=== PATIENT | female | born 1960 | race Caucasian/White ===

== ENCOUNTER → 2019-04-14 07:30 | Outpatient (BNVA) | payer MEDICARE, MEDICAID, SELFPAY | PROVIDERS: Family Provider Internal Medicine; PCP Internal Medicine; Visit Provider Nurse Practitioner | DX: F51.11 Primary hypersomnia (principal) | CPT/HCPCS: 99213 ==

== ENCOUNTER → 2019-04-19 10:03 | Outpatient (BNVA) | payer MEDICARE, MEDICAID, SELFPAY | PROVIDERS: Family Provider Internal Medicine; PCP Internal Medicine; Visit Provider Nurse Practitioner | DX: G89.29 Other chronic pain (principal); M54.16 Radiculopathy, lumbar region; M47.812 Spondylosis without myelopathy or radiculopathy, cervical region; Z79.891 Long term (current) use of opiate analgesic | CPT/HCPCS: 99213; 99214 ==

== ENCOUNTER → 2019-08-15 08:19 | Outpatient (BNVA) | payer MEDICARE, MEDICAID, SELFPAY | PROVIDERS: Family Provider Internal Medicine; PCP Internal Medicine; Visit Provider Anesthesiology | DX: G89.29 Other chronic pain (principal); M54.9 Dorsalgia, unspecified; M53.9 Dorsopathy, unspecified; M54.16 Radiculopathy, lumbar region; M47.812 Spondylosis without myelopathy or radiculopathy, cervical region; Z79.891 Long term (current) use of opiate analgesic | CPT/HCPCS: 99214 ==

== ENCOUNTER → 2019-09-28 07:54 | Outpatient (BNVA) | payer MEDICARE, MEDICAID, SELFPAY | PROVIDERS: Family Provider Internal Medicine; PCP Internal Medicine; Visit Provider Nurse Practitioner | DX: G47.00 Insomnia, unspecified (principal) | CPT/HCPCS: 99214 ==

== ENCOUNTER → 2019-10-03 09:17 | Outpatient (BNVA) | payer MEDICARE, MEDICAID, SELFPAY | PROVIDERS: Family Provider Internal Medicine; PCP Internal Medicine; Visit Provider Nurse Practitioner | DX: G89.29 Other chronic pain (principal); M47.812 Spondylosis without myelopathy or radiculopathy, cervical region; M54.16 Radiculopathy, lumbar region; M54.9 Dorsalgia, unspecified; Z79.891 Long term (current) use of opiate analgesic | CPT/HCPCS: 99213; 99214 ==

== ENCOUNTER → 2019-12-15 07:50 | Outpatient (BNVA) | payer MEDICARE, MEDICAID, SELFPAY | PROVIDERS: Family Provider Internal Medicine; PCP Internal Medicine; Visit Provider Anesthesiology | DX: G89.29 Other chronic pain (principal); M54.42 Lumbago with sciatica, left side; M54.41 Lumbago with sciatica, right side; M54.16 Radiculopathy, lumbar region; M47.812 Spondylosis without myelopathy or radiculopathy, cervical region; M54.9 Dorsalgia, unspecified; M53.9 Dorsopathy, unspecified; Z79.891 Long term (current) use of opiate analgesic | CPT/HCPCS: 99214 ==

== ENCOUNTER → 2020-02-20 07:53 | Outpatient (BNVA) | payer MEDICARE, MEDICAID, SELFPAY | PROVIDERS: Family Provider Internal Medicine; PCP Internal Medicine; Visit Provider Anesthesiology | DX: G89.29 Other chronic pain (principal); M54.9 Dorsalgia, unspecified; M54.41 Lumbago with sciatica, right side; M54.42 Lumbago with sciatica, left side; M54.16 Radiculopathy, lumbar region; M47.812 Spondylosis without myelopathy or radiculopathy, cervical region; M53.9 Dorsopathy, unspecified; Z79.891 Long term (current) use of opiate analgesic | CPT/HCPCS: 99213; 99214 ==

== ENCOUNTER → 2020-03-18 07:42 | Outpatient (BNVA) | payer MEDICARE, MEDICAID, SELFPAY | PROVIDERS: Family Provider Internal Medicine; PCP Internal Medicine; Visit Provider Nurse Practitioner | DX: G47.00 Insomnia, unspecified (principal) | CPT/HCPCS: 99213 ==

== ENCOUNTER → 2020-04-19 07:51 | Outpatient (BNVA) | payer MEDICARE, MEDICAID, SELFPAY | PROVIDERS: Family Provider Internal Medicine; PCP Internal Medicine; Visit Provider Anesthesiology | DX: G89.29 Other chronic pain (principal); M54.16 Radiculopathy, lumbar region; M54.9 Dorsalgia, unspecified; M47.812 Spondylosis without myelopathy or radiculopathy, cervical region; M53.9 Dorsopathy, unspecified; Z79.891 Long term (current) use of opiate analgesic | CPT/HCPCS: 99214 ==

== ENCOUNTER 2020-04-25 13:59 | Outpatient (CLI) | payer MEDICARE, MEDICAID, SELFPAY ==
--- NOTE | 2020-04-25 14:03 | MM_ITS ---
WS: [id number] BILATERAL DIGITAL SCREENING MAMMOGRAPHY WITH CAD CLINICAL INFORMATION: SCREENING HISTORY: Screening mammogram. No current complaints. COMPARISON: TECHNIQUE: Bilateral CC and MLO views. FINDINGS: The breasts are composed of heterogeneous fibroglandular density tissue, which can limit the detectio n of small underlying mass lesions. Asymmetric density upper outer left breast is new since the prior examinations measuring approximatel y 13 mm best seen on the cc view. This is probably posterior depth on the MLO view. Recommend spot co mpression views and ultrasound if persistent. Right breast is unchanged and unremarkable. MM/[place] [id number] IMPRESSION: BI-RADS: 0-Incomplete: Need additional imaging evaluation FOLLOW UP: Need Additional Imaging RECOMMEND LEFT DIAGNOSTIC MAMMOGRAPHY WITH SPOT COMPRESSION VIEWS OF THE ASYMME TRIC DENSITY AND LEFT BREAST ULTRASOUND IF PERSISTENT.
== END 2020-04-25 14:00 | disposition home or self-care (01) ==
LOC: RADSHAW 14:01
PROVIDERS: PCP Internal Medicine; Visit Provider Internal Medicine
DX: Z12.31 Encounter for screening mammogram for malignant neoplasm of breast (principal); N64.89 Other specified disorders of breast
CPT/HCPCS: 77067

== ENCOUNTER 2020-05-16 07:52 | Outpatient (CLI) | payer MEDICARE, MEDICAID, SELFPAY ==
--- NOTE | 2020-05-16 07:56 | US_ITS ---
WS: [id number] LEFT DIGITAL MAMMOGRAPHY WITH CAD CLINICAL INFORMATION: ABNORMAL MAMMOGRAM LT BREAST HISTORY: COMPARISON: April 25, 2020 TECHNIQUE: 5 views of the left breast were obtained. FINDINGS: Scattered fibroglandular densities of the left breast. Again seen is the asymmetric density upper out er left breast which partially compresses out on the spot compression views. This measures approximat ravi 13 mm unchanged. Ultrasound is pending. ULTRASOUND BREAST LEFT TECHNIQUE: Ultrasound left breast focused area of concern. CLINICAL INFORMATION: ABNORMAL MAMMOGRAM LT BREAST COMPARISON: None. FINDINGS: Ultrasound left breast at the 3:00 position. Small hypoechoic ovoid well-circumscribed lesion visuali zed posterior depth adjacent to the chest wall. This likely corresponds to the mammographic abnormali ty and measures approximately 5.6 x 7.2 x 2.0 mm. This is nonspecific but probably benign. Recommend 6 month follow-up left diagnostic mammography and ultrasound. US/US breast LT limited* [id number] IMPRESSION: BI-RADS: 3-Probably Benign FOLLOW UP: 6 Month Follow-up RECOMMEND 6 MONTH FOLLOW-UP LEFT DIAGNOSTIC MAMMOGRAPHY AND ULTRASOUND.
== END 2020-05-16 07:53 | disposition home or self-care (01) ==
LOC: RADSHAW 07:53
PROVIDERS: PCP Internal Medicine; Visit Provider Nurse Practitioner Family
DX: R92.8 Other abnormal and inconclusive findings on diagnostic imaging of breast (principal)
CPT/HCPCS: 76642; 77065

== ENCOUNTER → 2020-06-19 08:09 | Outpatient (BNVA) | payer MEDICARE, MEDICAID, SELFPAY | PROVIDERS: PCP Internal Medicine; Visit Provider Anesthesiology | DX: G89.29 Other chronic pain (principal); M54.9 Dorsalgia, unspecified; M54.16 Radiculopathy, lumbar region; M47.812 Spondylosis without myelopathy or radiculopathy, cervical region; M53.9 Dorsopathy, unspecified; Z79.891 Long term (current) use of opiate analgesic | CPT/HCPCS: 99214 ==

== ENCOUNTER 2020-07-04 07:56 | Outpatient (CLI) | payer MEDICARE, MEDICAID, SELFPAY ==
--- NOTE | 2020-07-04 08:00 | MR_ITS ---
WS: [id number] MRI LUMBAR SPINE NONCONTRAST TECHNIQUE: Sagittal T1, T2 and STIR imaging. Axial T1 and T2 imaging. CLINICAL INFORMATION: M54.16 - Radiculopathy, lumbar region COMPARISON: MRI March 2013 FINDINGS: Mild lumbar curve. No acute compression. Slight anterolisthesis L5 on S1 progressed from 2013. L1-L2: Normal. L2-L3: Mild annular bulging. Mild facet arthropathy. Spinal canal and foramen are patent. L3-L4: Slight retrolisthesis. Mild annular bulging. Slight narrowing of the left subarticular recess. Mild left and no significant right foraminal narrowing. Mild facet arthropathy. L4-L5: Mild annular bulging with slight effacement of ventral thecal sac. Slight narrowing of the sub articular recess. Mild left greater than right foraminal narrowing. Mild facet arthropathy. L5-S1: Grade 1 anterolisthesis L5 on S1. Disc bulging with mild to moderate central canal stenosis. I mpingement on the traversing right greater than left S1 nerve roots. Mild right and no significant le ft foraminal narrowing. Moderate facet arthropathy. Visualized pelvic bony structures: Normal. Paravertebral soft tissues: Normal. MR/MR lumbar spine wo con* [id number] IMPRESSION: 1. Mild lumbar curve. No acute compression. Slight anterolisthesis L5 on S1 me asuring 5 mm increased since 2013 2. Mild to moderate central canal stenosis L5-S1 with impingement on the trave rsing right greater than left S1 nerve roots. Recommend correlation for S1 nerv e root symptoms. Mild right L5-S1 foraminal narrowing. 3. Mild annular bulging L3-L4 and L4-L5 with slight narrowing of subarticular recess. 4. Mild foraminal narrowing more prominent left L3-4, bilateral L4-5, and righ t L5-S1. 5. Moderate facet arthropathy L5-S1.
== END 2020-07-04 07:57 | disposition home or self-care (01) ==
PROVIDERS: PCP Internal Medicine; Visit Provider Anesthesiology
DX: M54.16 Radiculopathy, lumbar region (principal); M47.817 Spondylosis without myelopathy or radiculopathy, lumbosacral region; M51.26 Other intervertebral disc displacement, lumbar region; M48.07 Spinal stenosis, lumbosacral region; M54.9 Dorsalgia, unspecified; G89.29 Other chronic pain
CPT/HCPCS: 36415; 72148; 80048

== ENCOUNTER 2020-07-04 09:19 | Outpatient (CLI) | payer MEDICARE, MEDICAID, SELFPAY ==
[2020-07-04 10:32] LABS: Anion Gap 13.2 (5-19); Blood Urea Nitrogen 19 mg/dL (6-20); Calcium 9.1 mg/dL (8.5-10.5); Carbon Dioxide 28 mmol/L (22-29); Chloride 103 mmol/L (98-107); Glomerular Filtration Rate 126.7 mL/min (90-130); Glucose 87 mg/dL (65-115); Osmolality Calculated 292 mOsm/kg (285-295); Potassium 4.2 mmol/L (3.5-5.1); Sodium 140 mmol/L (136-145)
== END 2020-07-04 09:20 | disposition home or self-care (01) ==
LOC: LAB 09:24
PROVIDERS: PCP Internal Medicine; Visit Provider Anesthesiology
DX: M54.9 Dorsalgia, unspecified (principal); G89.29 Other chronic pain
CPT/HCPCS: 36415; 80048

== ENCOUNTER → 2020-08-20 08:34 | Outpatient (BNVA) | payer MEDICARE, MEDICAID, SELFPAY | PROVIDERS: PCP Internal Medicine; Visit Provider Anesthesiology | DX: G89.29 Other chronic pain (principal); M54.9 Dorsalgia, unspecified; M54.16 Radiculopathy, lumbar region; M47.817 Spondylosis without myelopathy or radiculopathy, lumbosacral region; M47.812 Spondylosis without myelopathy or radiculopathy, cervical region; M53.9 Dorsopathy, unspecified; Z79.891 Long term (current) use of opiate analgesic; Z87.891 Personal history of nicotine dependence | CPT/HCPCS: 99214 ==

== ENCOUNTER → 2020-10-23 07:50 | Outpatient (BNVA) | payer MEDICARE, MEDICAID, SELFPAY | PROVIDERS: PCP Internal Medicine; Visit Provider Anesthesiology | DX: G89.29 Other chronic pain (principal); M54.16 Radiculopathy, lumbar region; M47.817 Spondylosis without myelopathy or radiculopathy, lumbosacral region; M47.812 Spondylosis without myelopathy or radiculopathy, cervical region; M53.9 Dorsopathy, unspecified; R51.9 Headache, unspecified; Z79.891 Long term (current) use of opiate analgesic; Z87.891 Personal history of nicotine dependence | CPT/HCPCS: 99214 ==

== ENCOUNTER 2020-12-11 07:52 | Outpatient (CLI) | payer MEDICARE, MEDICAID, SELFPAY ==
--- NOTE | 2020-12-11 08:04 | MM_ITS ---
WS: [id number] LEFT DIGITAL MAMMOGRAPHY WITH CAD CLINICAL INFORMATION: ABNORMAL MAMMOGRAM LT BREAST HISTORY: Six-month follow-up COMPARISON: May 16, 2020 TECHNIQUE: 7 views of the left breast were obtained. FINDINGS: Scattered fibroglandular densities of the left breast. Parenchymal tissue is unchanged in appearance left breast. No new findings. Ultrasound is pending. ULTRASOUND BREAST LEFT TECHNIQUE: Ultrasound left breast focused area of concern. CLINICAL INFORMATION: ABNORMAL MAMMOGRAM LT BREAST COMPARISON: May 16, 2020 FINDINGS: 6 month follow-up. Ultrasound left breast at 3:00 position 4 cm from the nipple. Normal underlying pa renchymal breast tissue. No cystic or solid lesions. No suspicious findings today. Previously describ ed small hypoechoic lesion not seen today. This was likely a small cyst that resolved. Recommend retu rn to annual screening mammography. MM/[place] [id number] IMPRESSION: BI-RADS: 2-Benign FOLLOW UP: 1 Year Follow-up Recommend return to annual screening mammography.
== END 2020-12-11 07:53 | disposition home or self-care (01) ==
LOC: RADSHAW 07:58
PROVIDERS: PCP Internal Medicine; Visit Provider Nurse Practitioner Family
DX: R92.8 Other abnormal and inconclusive findings on diagnostic imaging of breast (principal)
CPT/HCPCS: 76642; 77065

== ENCOUNTER → 2020-12-20 08:59 | Outpatient (BNVA) | payer MEDICARE, MEDICAID, SELFPAY | PROVIDERS: PCP Internal Medicine; Visit Provider Anesthesiology | DX: G89.29 Other chronic pain (principal); M47.812 Spondylosis without myelopathy or radiculopathy, cervical region; M54.16 Radiculopathy, lumbar region; M47.817 Spondylosis without myelopathy or radiculopathy, lumbosacral region; R51.9 Headache, unspecified; Z79.891 Long term (current) use of opiate analgesic | CPT/HCPCS: 99214 ==

== ENCOUNTER → 2021-03-21 08:12 | Outpatient (BNVA) | payer MEDICARE, MEDICAID, SELFPAY | PROVIDERS: PCP Internal Medicine; Visit Provider Anesthesiology | DX: G89.29 Other chronic pain (principal); M54.16 Radiculopathy, lumbar region; M47.817 Spondylosis without myelopathy or radiculopathy, lumbosacral region; M47.812 Spondylosis without myelopathy or radiculopathy, cervical region; M53.9 Dorsopathy, unspecified; G44.52 New daily persistent headache (NDPH); Z79.891 Long term (current) use of opiate analgesic; Z87.891 Personal history of nicotine dependence | CPT/HCPCS: 99214 ==

== ENCOUNTER 2022-01-29 13:57 | Outpatient (CLI) | payer MEDICARE, MEDICAID, SELFPAY ==
--- NOTE | 2022-01-29 14:15 | XR_ITS ---
WS: [id number] Exam: XR lumbar spine min 4V [id number] Date/Time of Exam: 01/29/2022 2:30 PM Reason For Exam: Lumbar Pain Comparison 04/10/2013. No fracture or dislocation. Grade 1 degenerative spondylolisthesis of L5 on S1 with about 8 mm forwar d movement of L5. Mild degenerative thinning of the L5-S1 disc. Degenerative facet change at L4-5 and L5-S1. Remaining discs are preserved. Osteopenia. XR/XR lumbar spine min 4V [id number] IMPRESSION: 1. No acute fracture or dislocation. 2. Degenerative spondylolisthesis of L5 on S1 with about 8 mm forward movement of L5. 3. Degenerative changes and osteopenia.
--- NOTE | 2022-01-29 14:15 | XR_ITS ---
WS: [id number] Exam: XR pelvis 1-2V* [id number] Date/Time of Exam: 01/29/2022 2:30 PM Reason For Exam: Pelvis Pain No fracture or dislocation. Mild DJD of the sacroiliac joints. The hips are intact. Soft tissues are unremarkable. XR/XR pelvis 1-2V* [id number] IMPRESSION: 1. No pelvic fracture noted. 2. Bilateral SI joint DJD.
== END 2022-01-29 13:58 | disposition home or self-care (01) ==
LOC: RAD 14:01
PROVIDERS: PCP Internal Medicine; Visit Provider General Practice
DX: R10.2 Pelvic and perineal pain (principal); M19.09 Primary osteoarthritis, other specified site; M54.50 Low back pain, unspecified; M43.17 Spondylolisthesis, lumbosacral region; M85.88 Other specified disorders of bone density and structure, other site
CPT/HCPCS: 72110; 72170

== ENCOUNTER 2023-08-03 08:01 | Outpatient (CLI) | payer MEDICARE, MEDICAID, SELFPAY ==
--- NOTE | 2023-08-03 08:11 | US_ITS ---
WS: [id number] ULTRASOUND SOFT TISSUES RIGHT back. HISTORY: SKIN LESION/MASS IN R LOWER BACK COMPARISON: None available. TECHNIQUE: 2-D and color Doppler imaging is submitted. Palpable area along the RIGHT lower back corresponds to a hyperechoic nodule without increased vascul arity. Nodule measures 1.1 x 0.5 cm and is very benign in appearance. Most consistent with a lipoma. US/US soft tissue/extremity [id number] IMPRESSION: Subcutaneous lipoma posterior RIGHT back corresponds to the palpable abnormalit y.
--- NOTE | 2023-08-03 08:11 | MM_ITS ---
WS: [id number] BILATERAL SCREENING DIGITAL TOMOSYNTHESIS MAMMOGRAM WITH CAD HISTORY: SCREENING COMPARISON: 12/11/2020, 04/25/2020, 10/10/2018 Bilateral CC and MLO views with tomosynthesis and synthetic mammography submitted. Computer aided det ection analyzed. Breast composition: There are scattered areas of fibroglandular density. No suspicious masses, microc alcifications or architectural distortion. Stable asymmetries in each breast. MM/[place] [id number] IMPRESSION: BI-RADS: 2-Benign FOLLOW UP: 1 Year Follow-up
== END 2023-08-03 08:02 | disposition home or self-care (01) ==
LOC: RAD 08:03
PROVIDERS: PCP Internal Medicine; Visit Provider Family Medicine
DX: Z12.31 Encounter for screening mammogram for malignant neoplasm of breast (principal); R92.323 Mammographic fibroglandular density, bilateral breasts; M79.89 Other specified soft tissue disorders
CPT/HCPCS: 76882; 77063; 77067

== ENCOUNTER 2024-09-23 18:36 | Emergency (ER) | payer MEDICARE, MEDICAID, SELFPAY ==
--- OUTSIDE RECORDS SUMMARY | 2018-01-17 08:20 | XMS_ITS | Continuity of Care Document ---
Author Organization [facility] Address [address] [place] [id number] Phone Care Team Providers Care Maintenance Services Dispatcher Name Role Phone Saulo Mcbride Unavailable Unavailable Advance Directives Directive Yes / No Effective Date File Name No Information Encounters Encounter Description Practice Location Reason(s) For Visit Diagnoses Date Provider Providers Copied on Encounter [facility], [address] [place] [address], [facility], tel:[phone] *[facility] No Information Reed Vernon. [address] [place] [address], [facility], . tel:[phone] Family History Family Member Type Diagnosis Age At Onset No Information Payers Payer name Insurance type Covered republican ID Authoriza tion(s) No Information Social History Type Description Quantity Date Captured Comments Sex Female Smoking Status No Information Chief Complaint And Reason For Visit No Information Reason For Referral Reason For Referral No Information History Of Present Illness Encounter Date Complaint History Of Prese nt Illness No Information Functional Status Date Functional Assessmen t No Information Instructions Date Instruction Additional Infor mation No Information Assessments Type Assessment Date No Information Patient Care Teams Name Effective Dates (start - stop) Status Members No Information
[2024-09-23 18:40] VITALS: BP 121/80; PULSE 74; RESP 16; TEMP 36.8; O2SAT 98; BMI 25.4
--- OUTSIDE RECORDS SUMMARY | 2024-09-23 18:43 | XMS_ITS | Clinical Summary ---
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 Primary Care Provider Allergies Active Allergy Reactions Criticality Noted Date Comments Alprazolam Rash,Other (See Comments) Low 06/19/2021 Patient states she got pimples Sulfa (Sulfonamide Antibiotics) Hives High 06/19/2021 Medications albuterol sulfate 90 mcg/Actuation inhaler inhale 1-2 puffs DIRECTED EVERY 6 HOURS NEEDED 05/22/2021 Active HYDROcodone-giselle taminophen (NORCO) 7.5-325 mg Tablet TAKE 1 TABLET BY MOUTH FOUR TIMES DAILY NEEDED FOR PAIN CAN FILL 02-22-21 06/02/2021 Active traMADoL (ULTRAM) 50 mg tablet TAKE 1 TABLET BY MOUTH FOUR TIMES DAILY NEEDED FOR PAIN MUST LAST 30 DAYS 06/04/2021 Active traZODone (DESYREL) 150 mg tablet TAKE 1 & 1/2 TABLETS BY MOUTH EVERY NIGHT 06/02/2021 Active butalbital-acet aminophen-caffe ine (FIORICET) 50-325-40 mg tablet TAKE 1 TABLET BY MOUTH EVERY 6 HOURS NEEDED FOR PAIN MUST LAST 30 DAYS 05/03/2021 Active Active Problems No known active problems Immunizations Immunization Administration Dates Next Due Hepatitis B Vaccine 05/29/1999,12/16/1998,1998 Influenza Seasonal Unspecifi ed Formulation IM 12/30/2004,01/13/2002 Social History Tobacco Use Types Packs/Day Years Used Date Smoking Tobacco: Former Alcohol Use Standard Drinks/Week Comments Not Currently 0 (1 standard drink = 0.6 oz pur e alcohol) Comments Unknown Sex and Gender Information Value Date Recorded Sex Assigned at Not on file 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 [employer] Gender Identity Not on file Sexual Orientation Not on file Last Filed Vital Signs Vital Sign Reading Time Taken Comments Blood Pressure 106/64 06/19/2021 12:14 PM CDT Pulse 78 06/19/2021 12:14 PM CDT Temperature - - Respiratory Rate - - Oxygen Saturation 95% 06/19/2021 12:14 PM CDT Inhaled Oxygen Concentration - - Weight 56.7 kg (125 lb) 06/19/2021 12:14 PM CDT Height 160 cm (5' 3 ) 06/19/2021 12:14 PM CDT Body Mass Index 22.14 06/19/2021 12:14 PM CDT Plan of Treatment Health Maintenance Due Date Last Done Comments DTAP/TDAP/TD VACCINES (1 - Tdap) 1981 HPV/Cotest (21-29) 1983 CERVICAL CANCER SCREENING 01/10/1992 HPV/Cotest (30-65) 01/10/1992 PAP SMEAR 01/10/1992 BREAST CANCER SCREENING 2002 COLORECTAL SCREENING 2007 Colorectal Cancer Screening 2007 FIT-DNA Q 3 years 2007 FIT/FOBT Q 1 year 2007 Flex Sig/CT Colonography Q 5 years 2007 ZOSTER VACCINE (1 of 2) 01/10/2012 INFLUENZA VACCINE (#1) 2024 12/30/2004, 2001 RSV VACCINE (60+ or ) (1 - 1-dose 75+ series) 2037 Insurance MEDICAID [facility] DUAL COMPLETE [facility] [id number] Care Teams Principal Clerk Typist Relationship Specialty Start Date End Date Shilpa Carbone FNP [facility] [address], [address] [facility] [address] PCP - General 06/27/03
--- NOTE | 2024-09-23 18:49 | XRR_ITS ---
PROCEDURE INFORMATION: Exam: XR Right Ankle Exam date and time: 09/23/2024 6:55 PM Age: 64 years old Clinical indication: Right; RT ankle pain post fall TECHNIQUE: Imaging protocol: Radiologic exam of the right ankle. Views: 3 or more views. COMPARISON: soft tissue/extremity [id number] 08/03/2023 8:29 AM FINDINGS: Bones/joints: Bimalleolar fracture seen of the right ankle. This includes spiral type fracture within the distal fibula or proximal lateral malleolus above the level of the ankle joint and transverse fracture of the distal medial malleolus. Mild cortical offset/deformity at the distal fibular fracture without significant angulation. Mild separation of the distal fracture fragment of the medial malleolus along with mild offset. Lateral view demonstrates widening of the anterior aspect of the tibiotalar joint in relation to the posterior aspect, indicating component of ligamentous injury. Soft tissues: Soft tissue swelling noted about the right ankle. XR/XR ankle RT min 3V* [id number] IMPRESSION: Bimalleolar fracture of the right ankle, as described above. Lateral view demonstrates associated widening of the anterior aspect of the tibiotalar joint in relation to the posterior aspect suggesting ligamentous injury.
--- NOTE | 2024-09-23 18:54 | W.ED.EXTPRO ---
HPI - Extremity Problem General: Chief complaint: Extremity Injury, Lower Stated complaint: rt leg inj Time Seen by Provider: 09/23/24 18:45 History of Present Illness: 64-year-old female with history of chronic low back pain and migraines who presents to the emergency room after having had a fall [place]. She has severe right ankle pain. She arrived by personal vehicle. She has not been able to bear weight. She has some swelling. No other injuries. Related Data Home Medications ?Medication ?Instructions ?Recorded ?Confirmed melatonin 5 mg chewable tablet 10 mg PO .QHS PRN sleep 04/14/19 03/21/21 Previous Rx's ?Medication ?Instructions ?Recorded trazodone 150 mg tablet 300 mg (2 x 150 mg) PO .COMPLEX 03/18/20 #75 tabs kpjhnknkol-maoyaupsdbxhf-slwtsvjc 1 tab PO Q6H PRN pain 30 days #60 03/21/21 50 mg-325 mg-40 mg tablet tabs hydrocodone 7.5 mg-acetaminophen 1 tab PO QID PRN pain 30 days #120 03/21/21 325 mg tablet tabs hydrocodone 7.5 mg-acetaminophen 1 tab PO QID PRN pain 30 days #120 03/21/21 325 mg tablet tabs tramadol 50 mg tablet 50 mg PO .four times PRN pain 30 03/21/21 days #120 tabs hydrocodone 5 mg-acetaminophen 325 1 tab PO Q6H PRN pain #20 tabs 09/23/24 mg tablet polyethylene glycol 3350 17 17 g PO DAILY #510 grams 09/23/24 gram/dose oral powder (Miralax) Allergies Allergy/AdvReac Type Severity Reaction Status Date / Time alprazolam (From Xanax) Allergy pimples Verified 03/21/21 08:23 Sulfa (Sulfonamide Allergy ALGY-Hives Verified 03/21/21 08:23 Antibiotics) Review of Systems Narrative: Constitutional symptoms: Negative except as documented in HPI. Skin symptoms: Negative except as documented in HPI. Eye symptoms: Negative except as documented in HPI. ENMT symptoms: Negative except as documented in HPI. Respiratory symptoms: Negative except as documented in HPI. Cardiovascular symptoms: Negative except as documented in HPI. Gastrointestinal symptoms: Negative except as documented in HPI. Genitourinary symptoms: Negative except as documented in HPI. Musculoskeletal symptoms: Negative except as documented in HPI. Neurologic symptoms: Negative except as documented in HPI. Psychiatric symptoms: Negative except as documented in HPI. Endocrine symptoms: Negative except as documented in HPI. PFSH ED PFSH: Medical History (Updated 09/23/24 @ 19:35 by Nyla Zarco MD) Facet arthritis of lumbosacral region Insomnia Chronic lumbar radiculopathy Cervical spondylosis Chronic midline back pain Cervical, Thoracic, Lumbar Multilevel degenerative disc disease Encounter for long-term opiate analgesic use Opioid contract exists Primary hypersomnia Surgical History Hx of hysterectomy Hx of tubal ligation Hx of breast augmentation Family History Unknown Cancer Depression Heart disease Kidney disease Arthritis Stroke Osteoporosis Hypercholesteremia Seizure Social History (Updated 03/21/21 @ 08:30 by Elaine Alberto LPN) Smoking and tobacco/nicotine status: former use of tobacco/nicotine Quit status (tobacco/nicotine): has quit using Former quit date comment: 25 years ago Second hand smoke exposure: No Alcohol intake: current Alcohol type: wine Substance/Drug Use: never Physical Exam Narrative: EXAM NARRATIVE: General: Alert, no acute distress. Skin: Warm, dry. Head: Normocephalic, atraumatic. Neck: Supple, trachea midline. Eye: Extraocular movements are intact. Ears, nose, mouth and throat: mucosa moist. Cardiovascular: Regular, Normal peripheral perfusion. Respiratory: Lungs are clear to auscultation, respirations are non-labored, breath sounds are equal, Symmetrical chest wall expansion. Gastrointestinal: Soft, Nontender, Non distended Musculoskeletal: Swelling and diffuse pain of her right ankle with limited range of motion secondary to pain. No obvious deformities. Neurovascularly intact. Neurological: Alert and oriented, No focal neurological deficit observed. Psychiatric: Cooperative, appropriate mood & affect. Course Vital Signs: Vital signs: Vital Signs Temperature 98.2 F 09/23/24 18:40 Pulse Rate 72 09/23/24 19:05 Respiratory Rate 20 H 09/23/24 19:05 Blood Pressure 133/98 09/23/24 19:05 Pulse Oximetry 99 09/23/24 19:05 Oxygen Delivery Me thod Room Air 09/23/24 19:05 MDM - Extremity (Nontraumatic) Medical Decision Making Medical decision making: Differential diagnosis including but not limited to and based on the above HPI, review of systems and physical exam: Ankle fracture versus ankle strain. Orders placed to evaluate differential diagnosis based on the above differential, HPI and physical exam X-ray of the right ankle shows a slightly displaced spiral fibular fracture and a medial malleolus fracture. Films were interpreted by myself the emergency room provider and pending final radiology review. Reexamination: Splint was placed by nursing. Patient is neurovascularly intact. Pain is fairly well-controlled with oral pain medications. No increased work of breathing. No altered mental status. Assessment and plan: Ankle fracture ? [facility] [place] here. Splint placed. To [facility] for home. Prescription called in. Crutches and crutch training. - Discharged home - Discussed plan with patient. Answered any questions. - Evaluation and treatment of this problem were appropriate in the emergency setting. All radiology interpretation(s) finalized by discharge Discharge Plan Discharge Patient Disposition: Home Clinical Impression: Ankle fracture Condition: Stable Prescriptions: New hydrocodone-acetaminophen 5-325 mg tablet 1 tab PO Q6H PRN (Reason: pain) Qty: 20 0RF polyethylene glycol 3350 [Miralax] 17 gram/dose powder 17 g PO DAILY Qty: 510 0RF Rx Instructions: Take 1 scoop daily while taking pain medications. No Action melatonin 5 mg tablet,chewable 10 mg PO .QHS PRN (Reason: sleep) trazodone 150 mg tablet 300 mg PO .COMPLEX Qty: 75 5RF Rx Instructions: 2 -2.5 tabs at bedtime as needed for sleep. hydrocodone-acetaminophen 7.5-325 mg tablet 1 tab PO QID PRN (Reason: pain) 30 Days Qty: 120 0RF Rx Instructions: Fill on or after 04/02/21 hydrocodone-acetaminophen 7.5-325 mg tablet 1 tab PO QID PRN (Reason: pain) 30 Days Qty: 120 0RF Rx Instructions: Fill on or after 05/02/21 tramadol 50 mg tablet 50 mg PO .four times PRN (Reason: pain) 30 Days Qty: 120 1RF Rx Instructions: Fill on or after 03/28/21 and 04/27/21 uhemoipnvw-qtanfnjvaupml-ehpy 50-325-40 mg tablet 1 tab PO Q6H PRN (Reason: pain) 30 Days Qty: 60 0RF Discharge Orders: Discharge ED (Routine); Ordered 09/23/24 Ordered By: Nyla Zarco Referrals: Ele Zelaya DO [Primary Care Provider, Family Practice] Simone Crouch DO [Physician, Orthopedics] - 4-7 days Referral Note: Call for an appointment on Wednesday morning. Discharge Diet: Usual diet Discharge Activity: Limit activity as instructed Patient Instructions: Crutch Instructions (ED), Splint Care (ED), Opioid Safety, Pain Management, Patient Portal & Sharif Instructions Activity Restrictions/Additional Instructions: Thank you for choosing [facility] for your healthcare needs today. You have been screened and evaluated and felt safe for discharge. Health conditions do change or evolve sometimes and as such it is important that you follow up with your Primary Doctor to be re checked, 3-5 days is a general good time frame for follow up. 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
[2024-09-23 19:05] VITALS: BP 133/98; PULSE 72; RESP 20; O2SAT 99
[2024-09-23] MEDS: HYDROcodone-acetaminophen 10-325 mg Tablet 1 TAB PO (19:08)
[2024-09-23] MEDS: HYDROcodone-acetaminophen 5-325 mg Tablet 2 TAB PO (19:53)
== END 2024-09-23 20:08 | disposition home or self-care (01) ==
PROVIDERS: Emergency Provider Emergency Medicine; PCP Internal Medicine
DX: S82.841A Displaced bimalleolar fracture of right lower leg, initial encounter for closed fracture (principal); W17.81XA Fall down embankment (hill), initial encounter
CPT/HCPCS: 29515; 73610; 99283; J9999

== ENCOUNTER → 2024-09-26 10:07 | Outpatient (BNVA) | payer MEDICARE, MEDICAID, SELFPAY | PROVIDERS: PCP Internal Medicine; Visit Provider Podiatrist Foot & Ankle Surgery | DX: S82.841A Displaced bimalleolar fracture of right lower leg, initial encounter for closed fracture (principal); X58.XXXA Exposure to other specified factors, initial encounter | CPT/HCPCS: 99204 ==

== ENCOUNTER → 2024-10-16 13:54 | Outpatient (BNVA) | payer MEDICARE, MEDICAID, SELFPAY | PROVIDERS: PCP Family Medicine; Visit Provider Podiatrist Foot & Ankle Surgery | DX: S82.841A Displaced bimalleolar fracture of right lower leg, initial encounter for closed fracture (principal); S82.891A Other fracture of right lower leg, initial encounter for closed fracture; X58.XXXA Exposure to other specified factors, initial encounter | CPT/HCPCS: 73610; 99024 ==

== ENCOUNTER → 2024-10-30 12:49 | Outpatient (BNVA) | payer MEDICARE, MEDICAID, SELFPAY | PROVIDERS: PCP Family Medicine; Visit Provider Podiatrist Foot & Ankle Surgery | DX: S82.841A Displaced bimalleolar fracture of right lower leg, initial encounter for closed fracture (principal); X58.XXXA Exposure to other specified factors, initial encounter | CPT/HCPCS: 73610; 99024 ==

== ENCOUNTER → 2024-11-14 12:48 | Outpatient (BNVA) | payer MEDICARE, MEDICAID, SELFPAY | PROVIDERS: PCP Family Medicine; Visit Provider Podiatrist Foot & Ankle Surgery | DX: S82.891A Other fracture of right lower leg, initial encounter for closed fracture (principal); S82.841A Displaced bimalleolar fracture of right lower leg, initial encounter for closed fracture; X58.XXXA Exposure to other specified factors, initial encounter | CPT/HCPCS: 73610; 99024 ==